=== PATIENT | female | born 2005 | race African-American/Black ===

== ENCOUNTER 2024-06-09 11:23 | Emergency (ER) | payer MEDICAID ==
[~2024-06-09] VITALS: Ht 160 cm; Wt 58.9 kg
[~2024-06-09 11:23] MED LIST: TAM75CAP PO
[2024-06-09] MEDS ORDERED: SODIUM CHLORIDE 0.9% 1,000 ML IV ONE (12:15)
[2024-06-09] MEDS ORDERED: ONDANSETRON HCl 4 MG/2 ML SDV IV ONE (12:15)
[2024-06-09 12:42] LABS: BASO% 0.2 % (0-3); EOS% 0.1 % (0-8); HEMATOCRIT 34.6 % (37.0-47.0); HEMOGLOBIN 11.4 g/dl (12.0-16.0); IMMATURE GRANULOCYTES 0.1 % (0.0-5.0); LYMPH% 13.4 % (15-41); MEAN CORPUSCULAR HGB 28.1 pG CALC (26.0-32.0); MEAN CORPUSCULAR HGB CONC 32.9 g/dL CAL (32.0-36.0); MONO% 3.3 % (2-13); NEUT# 8.15 thou/uL (2.00-7.15); NEUT% 82.9 % (42-76); RED BLOOD COUNT 4.05 mill/uL (4.20-5.60)
[2024-06-09 12:48] LABS: MEAN CELL VOLUME 85.4 fL CALC (80.0-100.0)
[2024-06-09] MEDS ORDERED: TAM75CAP PO (13:00)
[2024-06-09] MEDS ORDERED: ONDANSETRON4 MG PO (13:00)
== END 2024-06-09 13:25 | disposition home or self-care (01) ==
LOC: ED 11:23
PROVIDERS: Family Medicine
DX: J10.1 Influenza due to other identified influenza virus with other respiratory manifestations (principal); Z20.822 Contact with and (suspected) exposure to COVID-19
CPT/HCPCS: J2405

== ENCOUNTER 2024-07-01 03:15 | Emergency (ER) | payer MEDICAID ==
[~2024-07-01] VITALS: Ht 160 cm; Wt 58.0 kg
[~2024-07-01 03:15] MED LIST changes: +ONDANSETRON4 MG PO
[2024-07-01] MEDS ORDERED: LORazepam 1 MG/TAB PO ONE (03:30)
[2024-07-01] MEDS ORDERED: ONDANSETRON 4 MG/TAB ODT PO ONE (03:30)
[2024-07-01] MEDS ORDERED: oxyCODONE 5MG/ ACETAMINOPHEN 325MG TAB PO ONE (03:30)
[2024-07-01 04:46] VITALS: BP 108/59
[2024-07-04] MEDS ORDERED: CIPROFLOXACN500 MG PO (11:53)
== END 2024-07-01 04:50 | disposition home or self-care (01) ==
LOC: ED 03:15
DX: R06.00 Dyspnea, unspecified (principal); R10.9 Unspecified abdominal pain; R11.2 Nausea with vomiting, unspecified

== ENCOUNTER 2024-07-06 13:20 | Emergency (ER) | payer BC, MEDICAID ==
[~2024-07-06] VITALS: Ht 160 cm; Wt 49.8 kg
[~2024-07-06 13:20] MED LIST changes: +CIPROFLOXACN500 MG PO
[2024-07-06 13:30] VITALS: BP 108/82
[2024-07-06 13:43] VITALS: BP 108/82
== END 2024-07-06 13:47 | disposition home or self-care (01) | DRG 690 ==
LOC: ED 13:20
DX: N39.0 Urinary tract infection, site not specified (principal); B96.89 Other specified bacterial agents as the cause of diseases classified elsewhere